=== PATIENT | female | born 2000 | race Caucasian/White ===

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

== ENCOUNTER → 2020-08-07 13:26 | Outpatient (CLI) | payer SELFPAY ==
[2017-12-09 07:10] VITALS: BMI 28.6
[2020-08-10 05:07] LABS: Chlamydia By Nucleic Acid AMP Negative (Negative)
[2020-08-10 15:50] LABS: Gonococcus By Nucleic Acid AMP Negative (Negative)
== END ==
PROVIDERS: Visit Provider Student in an Organized Health Care Education/Training Program
DX: Z11.3 Encounter for screening for infections with a predominantly sexual mode of transmission (principal); Z32.01 Encounter for pregnancy test, result positive
CPT/HCPCS: 87491; 87591

== ENCOUNTER → 2020-08-14 15:46 | Outpatient (CLI) | payer SELFPAY ==
[2017-12-09 07:10] VITALS: BMI 28.6
[2020-08-14 17:32] LABS: Absolute Lymphocyte Count 1.46 X10^3/uL (0.83-4.51); Absolute Neutrophil Count 5.7 X10^3/uL (2.0-7.7); Basophil# 0.05 X10^3/uL; Basophil% 0.6 % (0-1); Eosinophils% 1.3 % (0-5); Hemoglobin 12.1 g/dL (12.0-15.0); Lymphocyte # 1.46 X10^3/ul (4.0); Lymphocyte % 18.7 % (19-41); Mean Corp Hgb Conc 32.7 g/dL (32-36); Mean Corpuscular Hgb 28.4 pg (27.0-32.0); Mean Corpuscular Volume 86.9 fL (81-99); Mean Platelet Vol. 9.2 fl (6.2-12.0); Monocyte# 0.49 X10^3/uL; Monocyte% 6.3 % (0-10); NRBC Flagged by Analyzer 0 % (0-5); Neutrophil # 5.68 X10^3/uL (2.7-7.7); Neutrophil % 72.8 % (47-70); Platelet Count 301 K/mm3 (150-450); RBC Distribution Width CV 12.7 % (11.6-14.6); RBC Distribution Width SD 40.1 fl (35.1-43.9); Red Blood Count 4.26 M/mm3 (4.2-5.4); White Blood Count 7.8 K/mm3 (4.4-11.0)
[2020-08-14 17:42] LABS: Color, Urine Yellow (Yellow); Glucose, Dipstick Normal (Normal); Ketone-Dipstick Negative (Negative); Leukocyte Esterase-Dipstick 500 /ul (Negative); Nitrite-Dipstick Negative (Negative); Occult Blood-Urine 10 /ul (Negative); Protein-Dipstick Negative (Negative); Specific Gravity, Urine 1.015 (1.002-1.030); Urine Bilirubin Dipstick Negative (Negative); Urine Clarity Sl. Cloudy (Clear); Urine Urobilinogen Normal (Normal); Urine pH 6.5 (5.0 - 8.0)
[2020-08-14 18:12] LABS: Amphetamine Urine VISTA NEGATIVE (<1000 ng/mL); Barbiturate Urine VISTA NEGATIVE (< 200 ng/mL); Benzodiazepine Urine VISTA NEGATIVE (< 200 ng/mL); Cocaine Urine VISTA NEGATIVE (< 300 ng/mL); Ecstacy Urine VISTA NEGATIVE (< 500 ng/mL); Methadone Urine VISTA NEGATIVE (< 300 ng/mL); PCP Urine VISTA NEGATIVE (< 25 ng/mL); THC Urine VISTA NEGATIVE (< 50 ng/mL); Vista UDS pH Range 6
[2020-08-15 09:18] LABS: HIV - WCH Non-Reactive (Nonreactive); Hepatitis B Surface Antigen Non-Reactive (Nonreactive); Hepatitis C Antibody Non-Reactive (Nonreactive); Rubella IgG 24.9 IU/mL
[2020-08-16 04:31] LABS: Prenatal RPR NONREACTIVE (NONREACTIVE)
== END ==
PROVIDERS: Visit Provider Student in an Organized Health Care Education/Training Program
DX: Z34.81 Encounter for supervision of other normal pregnancy, first trimester (principal)
CPT/HCPCS: 36415; 80307; 81002; 85025; 86703; 86762; 86803; 87340

== ENCOUNTER → 2020-12-11 09:15 | Outpatient (CLI) | payer SELFPAY ==
[2017-12-09 07:10] VITALS: BMI 28.6
[2020-12-11 10:42] LABS: Hematocrit 34.5 % (37-47); Hemoglobin 11.2 g/dL (12.0-15.0); Mean Corp Hgb Conc 32.5 g/dL (32-36); Mean Corpuscular Hgb 29.7 pg (27.0-32.0); Mean Corpuscular Volume 91.5 fL (81-99); Mean Platelet Vol. 9.1 fl (6.2-12.0); Platelet Count 281 K/mm3 (150-450); RBC Distribution Width CV 13.2 % (11.6-14.6); RBC Distribution Width SD 43.4 fl (35.1-43.9); Red Blood Count 3.77 M/mm3 (4.2-5.4); White Blood Count 8.8 K/mm3 (4.4-11.0)
[2020-12-11 11:08] LABS: Glucose Challenge Gest 1H 50g 64 mg/dL (70-140)
== END ==
PROVIDERS: Visit Provider Student in an Organized Health Care Education/Training Program
DX: Z34.83 Encounter for supervision of other normal pregnancy, third trimester (principal)
CPT/HCPCS: 36415; 82950; 85027

== ENCOUNTER → 2021-02-04 11:11 | Outpatient (CLI) | payer SELFPAY ==
[2017-12-09 07:10] VITALS: BMI 28.6
== END ==
PROVIDERS: Visit Provider Student in an Organized Health Care Education/Training Program
DX: Z36.85 Encounter for antenatal screening for Streptococcus B (principal)
CPT/HCPCS: 87081

== ENCOUNTER 2021-03-06 18:55 | Inpatient (IN) | payer SELFPAY ==
[2017-12-09 07:10] VITALS: BMI 28.6
[2021-03-06 19:21] VITALS: TEMP 36.6; O2SAT 99
[2021-03-06 19:22] VITALS: BP 114/68; PULSE 118
[2021-03-06] MEDS: miSOPROStol 25 MCG TABLET VAGINAL (20:08)
[2021-03-06 20:12] VITALS: BMI 31.7
[2021-03-06 20:21] LABS: Absolute Lymphocyte Count 1.61 X10^3/uL (0.83-4.51); Absolute Neutrophil Count 8.5 X10^3/uL (2.0-7.7); Basophil# 0.04 X10^3/uL; Basophil% 0.4 % (0-1); Eosinophil# 0.07 X10^3/uL; Eosinophils% 0.6 % (0-5); Hemoglobin 10.3 g/dL (12.0-15.0); Lymphocyte # 1.61 X10^3/ul (4.0); Lymphocyte % 14.7 % (19-41); Mean Corp Hgb Conc 31.2 g/dL (32-36); Mean Corpuscular Hgb 27.7 pg (27.0-32.0); Mean Corpuscular Volume 88.7 fL (81-99); Mean Platelet Vol. 9.5 fl (6.2-12.0); Monocyte% 6.4 % (0-10); NRBC Flagged by Analyzer 0 % (0-5); Neutrophil # 8.47 X10^3/uL (2.7-7.7); Neutrophil % 77.3 % (47-70); Platelet Count 312 K/mm3 (150-450); RBC Distribution Width CV 13.8 % (11.6-14.6); RBC Distribution Width SD 44.5 fl (35.1-43.9); Red Blood Count 3.72 M/mm3 (4.2-5.4)
[2021-03-06 22:35] VITALS: BP 106/66; PULSE 99; TEMP 36.6; O2SAT 96
[2021-03-07] VITALS (47 sets, daily range): BP systolic 86–156; BP diastolic 51–112; PULSE 83–190; RESP 18; TEMP 36.4–39.4; O2SAT 73–100
[2021-03-07] MEDS: Lactated Ringers 500 ML 999 ML IV ×2 (00:08→04:25)
[2021-03-07] MEDS: Lactated Ringers 1,000 ML 50 ML IV (00:39)
[2021-03-07] MEDS: fentaNYL-bupivacaine (epidural) 100 ML BAG EPIDURAL ×2 (05:17→10:31)
--- NOTE | 2021-03-07 08:11 | HP.PCM_ITS ---
History and Physical Date of Admission: 03/06/21 Chief complaint: Induction of labor at term History of present illness: 20-year-old G2, P1 at 40 weeks and 6 days with KYLE: 02/28/2021 by LMP arrives for induction of labor at term. Denies headache, visual changes, chest pain, shortness of breath, nausea vomiting, right upper quadrant pain. Patient states good movement. 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, resolved IUGR, short long bones Static history: G1: Term 12/10/2017 male G2: Current Past medical history: None Medications: vitamin Past surgical history: None Allergies: No known drug allergies Social history: Denies smoking, alcohol use, drug use Family history: Denies history of DVT or PE Review of systems: Besides the above pertinent positives a full review of systems was performed and found to be negative Physical exam: Vital Signs Temp Pulse BP Pulse Ox 03/07/21 08:05 117 H 86/51 L 03/07/21 07:15 98.6 F 108 H 95/63 98 03/07/21 06:09 86 108/62 98 03/07/21 06:08 97.9 F 03/07/21 05:47 91 97 03/07/21 05:46 85 111/66 03/07/21 05:42 104 H 116/70 96 03/07/21 05:37 94 97 03/07/21 05:36 93 106/69 94 03/07/21 05:32 91 98 03/07/21 05:31 94 103/64 03/07/21 05:27 95 96 03/07/21 05:26 97.5 F L 98 106/66 03/07/21 05:21 88 107/65 03/07/21 05:19 88 97 03/07/21 05:18 83 111/68 03/07/21 05:16 176 H 86 03/07/21 05:11 105 H 135/69 H 100 03/07/21 05:07 110 H 116/70 03/07/21 05:06 103 H 100 03/07/21 05:01 104 H 100 03/07/21 04:42 137 H 86 03/07/21 04:21 98.7 F 95 117/67 98 03/07/21 02:13 98.8 F 93 115/54 L 98 03/07/21 02:12 104 H 97 03/07/21 01:06 98.9 F 94 99/60 96 03/07/21 00:13 100 99/60 03/07/21 00:12 98.6 F 97 96 03/06/21 22:35 97.8 F 99 106/66 96 General: Normal-appearing no acute distress HEENT: Normocephalic atraumatic no cervical lymphadenopathy Cardiac/respiratory: Nonlabored breathing, no use of accessory muscles Abdomen: Soft, nontender Extremities: No peripheral edema normal peripheral pulses Psych: Normal affect normal demeanor nonpressured speech Mom's Labs & Results 03/06/21 03/06/21 19:43 19:43 WBC 11.0 RBC 3.72 L Hgb 10.3 L Hct 33.0 L MCV 88.7 MCH 27.7 MCHC 31.2 L RDW Std Deviation 44.5 H RDW Coeff of Nyla 13.8 Plt Count 312 MPV 9.5 Immature Gran % (Auto) 0.600 Neut % (Auto) 77.3 H Lymph % (Auto) 14.7 L [place] % (Auto) 6.4 Eos % (Auto) 0.6 Baso % (Auto) 0.4 Absolute Neuts (auto) 8.5 H Absolute Lymphs (auto) 1.61 Nucleated RBC % 0 Blood Type A POSITIVE Antibody Screen NEGATIVE Labs Blood Type: A RH: POSITIVE RPR/VDRL/Syphilis Nonreactive Rubella status Immune HbSAg Negative Date Done: 08/14/20 Chlamydia Negative Gonorrhea Negative HIV/AIDS Non-Reactive Group B Strep: Negative Assessment and plan: 20-year-old G2, P1 at 40 weeks and 6 days arrives for induction of labor -Admit labor and delivery -GBS negative -Cytotec induction -CEFM -Routine orders -Anesthesia to see
[2021-03-07] MEDS: Lactated Ringers 1,000 ML 200 ML IV (09:42)
[2021-03-07] MEDS: Oxytocin 30 units/NS 500 ml 30 UNITS/500 ML IV.SOLN IV (11:48)
[2021-03-07] MEDS: Oxytocin 30 units/NS 500 ml 30 UNITS/500 ML IV.SOLN 334 UNITS IV (15:13)
--- NOTE | 2021-03-07 15:25 | PCM.OPRPT ---
Vaginal Delivery Maternal Presentation: Active Labor Amniotic Membrane Rupture Type: Artificial Amniotic Fluid Description: Clear Final KYLE: 02/28/21 - \ Final KYLE Source: LMP Gestational age: 41 Weeks and 0 Days Date of Procedure: 03/07/21 Pre-Operative Diagnosis: Meza intrauterine , term Post-Operative Diagnosis: Meza intrauterine , term Surgery/ Procedure Performed: Spontaneous Vaginal Delivery Type of Anesthesia: None, Epidural Description of Procedure: Spontaneous vaginal delivery viable male. No nuchal cord. Baby to mom. Cord clamped and cut. Spontaneous delivery of placenta. First-degree perineal laceration repaired with 1 [id number] stitch, hemostatic. EBL 400 cc. A gender: Male (1 minute): 9 (5 minute): 9
--- NOTE | 2021-03-07 15:30 | DCINST_ITS ---
Discharge Activity: Return to Normal Activity, May Shower May resume sexual activity in: 6-8 weeks Weight Bearing Status: Weight bearing as tolerated Call your doctor if you observe: Fever of 101 or Higher, Coldness, Increased Pain, Inability to have a bowel movement, Using more than one pad per hour, Shortness of breath, Dizziness, Chest pain, Calf discomfort, Uncontrolled pain Cleanse incision/area with: Soap & Water Additional Instructions: If you experience any of the following, contact your healthcare provider. * Bleeding that soaks a pad every hour for 2 hours * Fever 100.4 or higher * Unrelieved incision or abdominal pain * Swelling, redness, discharge or bleeding from your incision or episiotomy site * Your incision begins to separate * Problems urinating (including inability to urinate or burning while urinating). * Visual changes * Severe headache * Flu-like symptoms * Pain or redness in one of both of your breasts * Pain, warmth, tenderness or swelling in your legs, especially the calf area * Frequent nausea and vomiting * Symptoms of depression or anxiety If you experience any of the following, call 911 or go to the nearest Emergency Room. * Chest pain * Problems breathing * Seizure activity * Partial or complete paralysis of a body part, slurred speech, weakness or drooping of the face, or a sudden inability to walk or hold your balance Allergies/Adverse Reactions: Allergies No Known Allergies Allergy (Verified 03/06/21 20:17) Medications to take at Discharge Vits [Prenatabs FA ] 1 tablet PO DAILY 12/09/17 Please Follow Up With: Marychuy Campbell DO When: 2 week telehealth, 6 wee Primary Care Physician: Care Physician,No Primary [Primary Care Provider] - Test Results: Test results from this visit will be discussed in further detail at your follow- up appointment, if applicable.
[2021-03-07] MEDS: Acetaminophen 500 MG Tablet 1000 MG PO (15:58)
[2021-03-07] MEDS: 0.9% Saline Lock 10 ML Syringe IV (23:42)
[2021-03-08] VITALS: BP 90/47; PULSE 94; RESP 16; TEMP 36.7; O2SAT 96
[2021-03-08 03:20] VITALS: BP 102/58; PULSE 85; RESP 16; TEMP 36.2; O2SAT 100
[2021-03-08 08:02] VITALS: BP 93/53; PULSE 78; RESP 18; TEMP 36
--- NOTE | 2021-03-08 08:26 | PCM.PN.OB ---
Subjective: No overnight complaints. Pain well controlled. - Physical Exam Vitals/I&O's: Vital Signs Temp Pulse Resp BP Pulse Ox 96.8 F L 78 18 93/53 L 100 03/08/21 08:02 03/08/21 08:02 03/08/21 08:02 03/08/21 08:02 03/08/21 03:20 Oxygen Delivery Method Room Air Weight: 185 lb Body Mass Index (BMI) 31.7 Intake and Output for Last 24 Hours 03/06/21 03/07/21 03/08/21 23:59 23:59 23:59 Intake Total 4566.02 / 4566.02 100 / 100 Output Total 5100 / 5100 Balance -533.98 / -533.98 100 / 100 General: Alert, Oriented x3, Cooperative, No apparent distress HEENT: Atraumatic, PERRLA, Normocephalic Oral: Moist Mucosa Neck: Supple, No JVD Abdomen: Soft, Non Tender, - - Uterus firm and below umbilicus Extremities: No clubbing, No cyanosis, No edema Neurological: Neuro grossly intact Psych/Mental Status: Normal Affect, Appropriate, Alert and oriented to time, place, person, mood and affect Current Medications Acetaminophen (Acetaminophen 500 Mg Tablet) 1,000 mg PO Q8H PRN PRN PRN Reason: Pain Score 1-3 Last Admin: 03/07/21 15:58 Dose: 1,000 mg Documented by: Bisacodyl (Bisacodyl 10 Mg Suppository) 10 mg RC UD PRN PRN Reason: If no BM Dibucaine (Dibucaine 30 Gm Tube) 1 applic TOPICAL TID PRN PRN; Protocol PRN Reason: Discomfort Hydrocortisone (Hydrocortisone 2.5% Crm) 1 applic TOPICAL TID PRN PRN; Protocol PRN Reason: Discomfort Ampicillin Sodium 2 gm/ Sodium (Chloride) 100 mls @ 200 mls/hr IV Q6H GENE Last Infusion: 03/08/21 05:24 Dose: Infused Documented by: Ibuprofen (Ibuprofen 600 Mg Tablet) 600 mg PO Q6H PRN PRN PRN Reason: Pain Score 1-3 Ondansetron HCl (Ondansetron 4 Mg/2 Ml Vial) 4 mg IV Q4H PRN PRN PRN Reason: Nausea Senna/Docusate Sodium (Senna/Docusate Sodium 1 Tablet) 1 - 2 tablet PO DAILY PRN PRN PRN Reason: Constipation Simethicone (Simethicone 80 Mg Tablet) 80 mg PO PCHS PRN PRN Reason: Indigestion/Stomach pain Sodium Chloride (0.9% Saline Lock 10 Ml Syringe) 5 - 15 ml IV UD PRN PRN Reason: SALINE FLUSH Last Admin: 03/07/21 23:42 Dose: 10 ml Documented by: Zolpidem Tartrate (Zolpidem Tartrate 5 Mg Tablet) 5 mg PO QHS PRN PRN PRN Reason: Insomnia Medical Necessity - Tobacco Use Smoking Status: Never smoker Assessment/Plan All Active Problems Spontaneous vaginal delivery (Acute) day 1. Pain well controlled. Will discharge home tomorrow after circumcision of baby.
[2021-03-08] MEDS: 0.9% Saline Lock 10 ML Syringe IV (11:17)
[2021-03-08 11:41] VITALS: BP 104/57; PULSE 78; RESP 16; TEMP 36.2
[2021-03-08 15:41] VITALS: BP 106/65; PULSE 84; RESP 16; TEMP 36.4
[2021-03-08 20:04] VITALS: BP 105/57; PULSE 85; RESP 16; TEMP 36.6
[2021-03-09 02:01] VITALS: BP 111/66; PULSE 80; RESP 16; TEMP 36.6
[2021-03-09] MEDS: Acetaminophen 500 MG Tablet 1000 MG PO (05:05)
[2021-03-09 08:20] VITALS: BP 112/74; PULSE 77; RESP 16; TEMP 36.3; O2SAT 97
--- NOTE | 2021-03-09 09:06 | PCM.PN.OB ---
Subjective: Patient without complaints. Reports minimal vaginal bleeding. Bottlefeeding. Ready to go home today. - Physical Exam Vitals/I&O's: Vital Signs Temp Pulse Resp BP Pulse Ox 97.3 F L 77 16 112/74 97 03/09/21 08:20 03/09/21 08:20 03/09/21 08:20 03/09/21 08:20 03/09/21 08:20 Oxygen Delivery Method Room Air Weight: 185 lb Body Mass Index (BMI) 31.7 Intake and Output for Last 24 Hours 03/07/21 03/08/21 03/09/21 23:59 23:59 23:59 Intake Total 4566.02 / 4566.02 200 / 200 Output Total 5100 / 5100 Balance -533.98 / -533.98 200 / 200 Current Medications Acetaminophen (Acetaminophen 500 Mg Tablet) 1,000 mg PO Q8H PRN PRN PRN Reason: Pain Score 1-3 Last Admin: 03/09/21 05:05 Dose: 1,000 mg Documented by: Bisacodyl (Bisacodyl 10 Mg Suppository) 10 mg RC UD PRN PRN Reason: If no BM Dibucaine (Dibucaine 30 Gm Tube) 1 applic TOPICAL TID PRN PRN; Protocol PRN Reason: Discomfort Hydrocortisone (Hydrocortisone 2.5% Crm) 1 applic TOPICAL TID PRN PRN; Protocol PRN Reason: Discomfort Ibuprofen (Ibuprofen 600 Mg Tablet) 600 mg PO Q6H PRN PRN PRN Reason: Pain Score 1-3 Ondansetron HCl (Ondansetron 4 Mg/2 Ml Vial) 4 mg IV Q4H PRN PRN PRN Reason: Nausea Senna/Docusate Sodium (Senna/Docusate Sodium 1 Tablet) 1 - 2 tablet PO DAILY PRN PRN PRN Reason: Constipation Simethicone (Simethicone 80 Mg Tablet) 80 mg PO PCHS PRN PRN Reason: Indigestion/Stomach pain Sodium Chloride (0.9% Saline Lock 10 Ml Syringe) 5 - 15 ml IV UD PRN PRN Reason: SALINE FLUSH Last Admin: 03/08/21 11:17 Dose: 10 ml Documented by: Zolpidem Tartrate (Zolpidem Tartrate 5 Mg Tablet) 5 mg PO QHS PRN PRN PRN Reason: Insomnia Medical Necessity - Tobacco Use Smoking Status: Never smoker Assessment/Plan All Active Problems Spontaneous vaginal delivery (Acute) Doing well day #2 status post routine spontaneous vaginal delivery. Will discharge to home with routine instructions.
--- NOTE | 2021-03-09 09:29 | CASEMGMT ---
Social Work Assessment Labor and Delivery Unit Date/Time of referral: 03/08/21, 12:56am Referred by: Dr. Marychuy Campbell DO Date/Time of Intervention: 02/28/21, 9:15am Reason for Referral: History of depression History obtained from: MOB, FOB Household composition: ZORAIDA SALAMANCA, 3 yr old boy and now baby Addy. MOB and FOB have been together 5 years, 2.5 years Parent/Guardian Status: MOB and FOB guardians of baby Medical History: MOB, history of PPD. Baby: Born 03/[birth year]/21, 13:09, 3.9kg. Apgars 9 and 9 at 1 and 5 minutes respectively. Educational Status: Both MOB and FOB finished 8th grade Financial Status: No financial concerns. They have a package plan to pay for this hospitalization. MOB stays home, FOB works in solar energy. Infant supplies: Family has all needed supplies including crib/bassinet, car seat, clothing, diapers, bottles, formula. Childcare/Caregivers: MOB and FOB are primary caregivers. MOB's parents, brother and sister are also helpful. ZORAIDA is one of 12, a couple of his siblings are helpful, but all would help if needed. Transportation: They have a car. Programs/Agencies involved: None Children's Services/Legal issues: None Behavioral Health Issues: Mental Health: FOB, none. MOB, some PPD after of last child. MOB states it was only for a couple days and utilized support of family to work through it. MOB did not use meds or have counseling, did not feel the need for it. MOB states she had no history of depression or anxiety prior to this. Substance Abuse: None for MOB or FOB. Drug Screens: Not completed. No safety concerns. Family/Social Stressors: They do not identify any. Support systems: Family as outlined above. Pospartum Depression and Anxiety/Shaken baby/Safe Sleeping: SW reviewed information and provided information on these topics. SW also provided information for [facility], and a list of resources for [facility]. SW also did give them the number for [facility](as they are on the border of [facility] and [facility]), and explained that they are a 24 hour hotline if needed. Assessment: MOB and FOB both appropriate, answered all questions. FOB holding baby, seems comfortable and appropriate with baby. Plan: Baby home with parents. No additional concerns at this time. TIANA Álvarez
--- NOTE | 2021-03-10 13:44 | DS.PCM_ITS ---
Discharge Summary Date of Admission: 03/06/21 Date of Discharge: 03/09/21 Summary: Admission diagnosis: Intrauterine Discharge diagnosis: Intrauterine Procedure: Spontaneous vaginal delivery HPI: Uneventful care. PE: Unremarkable. Hospital Course: The patient is a 20 year old who presented to L and D at 40+ weeks gestation for induction. She progressed and subsequently delivered a viable infant she did well and was felt that she was ready for discharge on day #2. Homegoing Instruction: She was instructed not to drive for several days,not to put anything in the vagina for 4 weeks, not to lift >25 lbs for 6 weeks and to c all the office for an appointment in 6 weeks. Discharge Medications: She was instructed to continue vitamins and iron and to use Tylenol and ibuprofen as needed for discomfort. - Physical Exam Vitals/I&O's: Vital Signs Temp Pulse Resp BP Pulse Ox 97.3 F L 77 16 112/74 97 03/09/21 08:20 03/09/21 08:20 03/09/21 08:20 03/09/21 08:20 03/09/21 08:20 Oxygen Delivery Method Room Air Weight: 185 lb Body Mass Index (BMI) 31.7 Intake and Output for Last 24 Hours 03/08/21 03/09/21 03/10/21 23:59 23:59 23:59 Intake Total 200 / 200 Balance 200 / 200
== END 2021-03-09 13:00 | disposition home or self-care (01) | DRG 807 ==
PROVIDERS: Obstetrics & Gynecology; Admitting Provider Student in an Organized Health Care Education/Training Program; Visit Provider Student in an Organized Health Care Education/Training Program
DX: O48.0 Post-term pregnancy (principal); O70.0 First degree perineal laceration during delivery; Z37.0 Single live birth; Z3A.41 41 weeks gestation of pregnancy
CPT/HCPCS: 59025; 59050; 85025; 86850; 86900; 86901; 99218; J7120; A4216; G0378